=== PATIENT | female | born 1955 | race Caucasian/White ===

== ENCOUNTER 2020-08-07 06:38 | Day surgery (SDC) | payer OTHER ==
[~2020-08-07 06:38] MED LIST: SYNTHROID100 MCG PO; ZOLOFT25 MG PO
[2020-08-07] MEDS ORDERED: ULTRACET PO (10:37)
[2020-08-07] MEDS ORDERED: ASA325 M1 PO (10:37)
[2020-08-07] MEDS ORDERED: DUI500 PO (10:37)
== END 2020-08-07 14:35 | disposition home or self-care (01) ==
LOC: CIR.AMB 06:38
PROVIDERS: ATTEND Orthopaedic Surgery
DX: S82.032A Displaced transverse fracture of left patella, initial encounter for closed fracture (principal); Z20.822 Contact with and (suspected) exposure to COVID-19

== ENCOUNTER → 2020-10-17 | Outpatient (CLI) | payer OTHER ==
[~2020-10-17] MED LIST changes: +ASA325 M1 PO; +DUI500 PO; +ULTRACET PO
== END | disposition home or self-care (01) ==
LOC: NUCLEAR 14:00
PROVIDERS: ATTEND Physical Medicine & Rehabilitation Sports Medicine
DX: M81.0 Age-related osteoporosis without current pathological fracture (principal)

== ENCOUNTER 2021-01-23 15:32 | Emergency (ER) | payer OTHER ==
[~2021-01-23] VITALS: Ht 160 cm; Wt 52.2 kg
== END 2021-01-23 17:35 | disposition home or self-care (01) ==
LOC: ER 15:32
DX: R42 Dizziness and giddiness (principal)

== ENCOUNTER 2021-02-08 08:35 | Outpatient (CLI) | payer OTHER | END 2021-02-08 08:40 | disposition home or self-care (01) | LOC: SONOGRAMA 08:35 | PROVIDERS: ATTEND Internal Medicine Hematology & Oncology | DX: E04.1 Nontoxic single thyroid nodule (principal); C81.01 Nodular lymphocyte predominant Hodgkin lymphoma, lymph nodes of head, face, and neck; D86.3 Sarcoidosis of skin; I10 Essential (primary) hypertension; Q85.00 Neurofibromatosis, unspecified; I80.8 Phlebitis and thrombophlebitis of other sites ==

== ENCOUNTER 2023-08-28 12:47 | Outpatient (CLI) | payer OTHER | END 2023-08-28 12:49 | disposition home or self-care (01) | LOC: NUCLEAR 12:47 | PROVIDERS: ATTEND Internal Medicine Hematology & Oncology | DX: M85.9 Disorder of bone density and structure, unspecified (principal); M81.0 Age-related osteoporosis without current pathological fracture ==